=== PATIENT | female | born 1950 | race Caucasian/White ===

== ENCOUNTER 2021-02-20 18:04 | Outpatient (CLI) | payer BC ==
[2021-02-20 20:39] LABS: THYROID STIMULATING HORMONE 14.05 uIU/mL (0.34-5.60)
[2021-02-20 20:42] LABS: FREE T3 3.58 pg/mL (2.5-3.9)
[2021-02-20 20:43] LABS: FREE T4 (FREE THYROXINE) 0.74 ng/dL (0.58-1.64)
== END 2021-02-20 18:05 | disposition home or self-care (01) ==
LOC: LAB.S 18:04
PROVIDERS: ATTEND Naturopath
DX: E03.8 Other specified hypothyroidism (principal); E06.3 Autoimmune thyroiditis
CPT/HCPCS: 36415; 84439; 84443; 84481; 84482

== ENCOUNTER 2021-05-23 17:53 | Outpatient (CLI) | payer BC ==
[2021-05-23 20:34] LABS: THYROID STIMULATING HORMONE 4.12 uIU/mL (0.34-5.60)
== END 2021-05-23 17:54 | disposition home or self-care (01) ==
LOC: LAB.S 17:53
PROVIDERS: ATTEND Naturopath
DX: E03.8 Other specified hypothyroidism (principal); E06.3 Autoimmune thyroiditis; Z51.81 Encounter for therapeutic drug level monitoring
CPT/HCPCS: 36415; 84443

== ENCOUNTER 2021-08-22 18:05 | Outpatient (CLI) | payer BC | END 2021-08-22 18:06 | disposition home or self-care (01) | LOC: LAB.S 18:05 | PROVIDERS: ATTEND Naturopath | DX: Z53.9 Procedure and treatment not carried out, unspecified reason (principal) | CPT/HCPCS: 36415; 84443 ==

== ENCOUNTER 2021-08-26 15:01 | Outpatient (CLI) | payer BC ==
[2021-08-26 18:29] LABS: THYROID STIMULATING HORMONE 2.44 uIU/mL (0.34-5.60)
== END 2021-08-26 15:02 | disposition home or self-care (01) ==
LOC: LAB.S 15:01
PROVIDERS: ATTEND Naturopath
DX: E03.8 Other specified hypothyroidism (principal); E06.3 Autoimmune thyroiditis
CPT/HCPCS: 36415; 84443

== ENCOUNTER 2022-08-28 08:00 | Outpatient (CLI) | payer BC ==
--- NOTE | 2022-08-29 12:12 | XRAY Report ---
PROCEDURE: Chest 2 View X-Ray INDICATIONS: CONTUSION OF THORAX TECHNIQUE: 2 views of the chest were acquired. COMPARISON: None. FINDINGS: Surgical changes and devices: None. Lungs and pleura: No pleural effusions or pneumothorax. Lungs are clear. Mediastinum: Mediastinal contours are normal. Heart size is normal. Bones and chest wall: No suspicious bony abnormalities. Soft tissues appear unremarkable. IMPRESSION: No acute cardiopulmonary process. Reviewed by: Reji Bacon on 08/29/2022 12:10 PM PDT Approved by: Reji Bacon on 08/29/2022 12:10 PM PDT Station ID: [id number]
== END 2022-08-28 23:59 | disposition home or self-care (01) ==
LOC: DI.S 08:00
PROVIDERS: ATTEND Physician Assistant
DX: S20.212A Contusion of left front wall of thorax, initial encounter (principal)

== ENCOUNTER 2022-09-25 08:52 | Outpatient (CLI) | payer BC ==
[2022-09-25 15:18] LABS: FREE T3 3.15 pg/mL (2.5-3.9); FREE T4 (FREE THYROXINE) 1.01 ng/dL (0.58-1.64)
[2022-09-25 15:23] LABS: CHOL/HDL RATIO 3.7 (<4.4); CHOLESTEROL 239 mg/dL; HDL CHOLESTEROL 65 mg/dL; LDL CHOLESTEROL,CALCULATED 153 mg/dL; LDL/HDL RATIO 2.4 (<4.4); TRIGLYCERIDES 106 mg/dL; VLDL CHOLESTEROL 21 mg/dL
[2022-09-25 20:26] LABS: ESTIMATED AVERAGE GLUCOSE 111 mg/dL (70-100); HEMOGLOBIN A1c% 5.5 % (4.27-6.07)
== END 2022-09-25 08:53 | disposition home or self-care (01) ==
LOC: LAB.S 08:52
PROVIDERS: ATTEND Naturopath
DX: E78.2 Mixed hyperlipidemia (principal); Z13.1 Encounter for screening for diabetes mellitus; E03.9 Hypothyroidism, unspecified; E06.3 Autoimmune thyroiditis
CPT/HCPCS: 36415; 80061; 83036; 83721; 84439; 84443; 84481

== ENCOUNTER 2023-02-07 18:25 | Outpatient (CLI) | payer BC ==
--- NOTE | 2023-02-08 08:44 | Ultrasound Report ---
PROCEDURE: Duplex Ext Veins Bilateral INDICATIONS: TO YU ND TECHNIQUE: Real-time imaging, as well as color and pulse Doppler interrogation, were performed of the deep veins of both legs from the inguinal ligament to the popliteal fossa. Attempted visualization of the calf veins was performed. COMPARISON: None FINDINGS: The deep veins are normally compressible, and free of intraluminal thrombus. Color and pu lse Doppler demonstrate normal phasic intravascular flow. There is normal augmentation response to d istal compression maneuver. IMPRESSION: No deep venous thrombosis of the visualized lower extremities. Reviewed by: Uriel Chow MD on 02/08/2023 8:43 AM PDT Approved by: Uriel Chow MD on 02/08/2023 8:43 AM PDT Station ID: [id number]
--- NOTE | 2023-02-08 12:12 | Ultrasound Report ---
PROCEDURE: Duplex Lwr Ext Arterial Bilat INDICATIONS: SWELLING AND CHRONIC LEG CRAMPING TECHNIQUE: Color and pulse Doppler interrogation was performed of both lower extremity arterial systems, with im age documentation. COMPARISON: None FINDINGS: Right lower extremity: Common femoral artery: 120 cm/sec, with triphasic flow. Deep femoral artery: 78 cm/sec, with triphasic flow. Proximal superficial femoral artery: 130 cm/sec, with triphasic flow. Mid superficial femoral artery: 132 cm/sec, with monophasic and biphasic flow. Distal superficial femoral artery: 80 cm/sec, with triphasic flow. Popliteal artery: 78 cm/sec, with biphasic flow. Posterior tibial artery: 92 cm/sec, with biphasic and triphasic flow. Anterior tibial artery/dorsalis pedis: 87 cm/sec, with biphasic contrast flow. Dash-scale imaging description: Mild diffuse plaque Left lower extremity: Common femoral artery: 127 cm/sec, with triphasic flow. Deep femoral artery: 52 cm/sec, with biphasic and triphasic flow. Proximal superficial femoral artery: 111 cm/sec, with triphasic flow. Mid superficial femoral artery: 135 cm/sec, with triphasic flow. Distal superficial femoral artery: 111 cm/sec, with triphasic flow. Popliteal artery: 91 cm/sec, with biphasic flow. Posterior tibial artery: 155 cm/sec, with biphasic flow. Anterior tibial artery/dorsalis pedis: 95 cm/sec, with biphasic and monitor face flow. Dash-scale imaging description: Mild diffuse plaque IMPRESSION: 1. No evidence of arterial insufficiency to the bilateral lower extremities. Reviewed by: Mandy Maldonado MD on 02/08/2023 12:10 PM PDT Approved by: Mandy Maldonado MD on 02/08/2023 12:10 PM PDT Station ID: [id number]
== END 2023-02-07 18:26 | disposition home or self-care (01) ==
LOC: DI 18:25
PROVIDERS: ATTEND Naturopath
DX: M79.89 Other specified soft tissue disorders (principal); R25.2 Cramp and spasm
CPT/HCPCS: 93925; 93970

== ENCOUNTER 2023-07-26 08:00 | Outpatient (CLI) | payer BC, OTHER | END 2023-07-26 23:59 | disposition home or self-care (01) | LOC: LAB.N 08:00 | PROVIDERS: ATTEND Registered Nurse | DX: R82.998 Other abnormal findings in urine (principal); R30.0 Dysuria | CPT/HCPCS: 87086; 87181 ==

== ENCOUNTER 2023-08-06 08:00 | Outpatient (CLI) | payer BC ==
[2023-08-06 21:02] LABS: BILIRUBIN,URINE SMALL (NEGATIVE); GLUCOSE, URINE (UA) NEGATIVE (NEGATIVE); KETONES,URINE (UA) NEGATIVE (NEGATIVE); LEUKOCYTE ESTERASE, URINE MODERATE (NEGATIVE); NITRITE,URINE NEGATIVE (NEGATIVE); OCCULT BLOOD,URINE TRACE-INTA (NEGATIVE); PH,URINE 5.5 PH (5.0-7.5); PROTEIN,URINE TRACE mg/dL (NEGATIVE); UROBILINOGEN,URINE 0.2 (NORMAL) E.U./dL (NORMAL)
[2023-08-06 21:21] LABS: CLARITY,URINE CLOUDY (CLEAR)
[2023-08-06 21:33] LABS: BACTERIA,URINE Moderate /HPF (None Seen); RBC,URINE 0-5 /HPF (0-5); SQUAMOUS EPITHELIAL CELL,UR FEW Squamous (<= Few); WBC,URINE >25 /HPF (0-5)
[2023-08-06 21:34] LABS: AMORPHOUS SEDIMENT,UR Few /LPF; CASTS, URINE 3-5 Fine Granular /LPF
== END 2023-08-06 23:59 | disposition home or self-care (01) ==
LOC: LAB.S 08:00
PROVIDERS: ATTEND Emergency Medicine
DX: R35.0 Frequency of micturition (principal)
CPT/HCPCS: 81001; 87086